=== PATIENT | male | born 1970 | race Caucasian/White ===

== ENCOUNTER 2016-10-20 16:42 | Emergency (ER) | payer OTHER ==
[~2016-10-20] VITALS: Ht 193 cm; Wt 113.4 kg
--- NOTE | ~2016-10-20 | EKG ---
[place] [address] [facility] [place] [address] ELECTROCARDIOGRAM REPORT Name: AWILDA GUTIERRES Room #: DEP KIKI Huynh#: [id number] Admission: 10/20/16 Attend Phys: Discharge: 10/20/16 Date of : 66 Report #: [id number] THIS REPORT FOR: //name// [facility] ED Test Date: 2016-10-20 Test Time: 17:24:06 Pat Name: AWILDA GUTIERRES Department: Room: Gender: [employer] Assembler: [facility] : 1970 Requested By: Vanita Reese Order Number: [id number] MD: Rishabh Coleman Measurements Intervals [place] Rate: 74 P: 44 IN: 145 QRS: 20 QRSD: 103 T: 43 QT: 407 QTc: 452 Interpretive Statements Sinus rhythm No significant abnormality Compared to ECG 05/13/2013 09:06:41 No significant changes Electronically Signed On 10-21-2016 8:22:49 CDT by Rishabh Coleman [email or web address] <ELECTRONICALLY SIGNED> By: Rishabh Coleman MD, [facility] 10/21/16 0822 1724 1724 Rishabh Coleman MD, [facility] /EPI
[~2016-10-20 16:42] MED LIST: ABILIFY PO; BACTRIM DS TAB1 EACH PO; CELEXA40 MG PO; CORTISPORIN OTI10 M2 OT; FISH OIL300 MG PO; NORCO 5-325 TA1 EACH PO
[2016-10-20 17:05] LABS: ABSOLUTE NEUTROPHILS 4.2 thou/uL (1.4-8.2); BASOPHILS 0.7 % (0.0-2.0); EOSINOPHILS 1.6 % (0.0-3.0); HEMATOCRIT 46.5 % (42.0-52.0); HEMOGLOBIN 16.1 gm/dL (14.0-18.0); LYMPHOCYTES 39.2 % (24.0-44.0); MCH 29.1 pg (26.0-34.0); MCHC 34.7 g/dL (28.0-37.0); MONOCYTES 9.2 % (1.0-8.0); PLATELET COUNT 267 thou/uL (150-400); POLYS 49.3 % (36.0-66.0); RBC 5.53 mil/uL (4.50-6.00); RDW 14.5 % (10.5-14.5); WBC 8.5 thou/uL (4.0-11.0)
[2016-10-20 17:06] LABS: MANUAL DIFF NO
[2016-10-20 17:16] LABS: ANION GAP 9 mmol/L (7-16); BUN 10 mg/dL (7-18); CALCIUM 9.1 mg/dL (8.5-10.1); CHLORIDE 104 mmol/L (98-107); CO2 29 mmol/L (21-32); GLUCOSE 112 mg/dL (74-106); POTASSIUM 3.4 mmol/L (3.5-5.1); SODIUM 142 mmol/L (136-145)
[2016-10-20 17:24] LABS: TROPONIN-I < 0.04 ng/mL (<0.04-0.07)
[2016-10-20] MEDS ORDERED: ANTIVERT25 MG PO (18:09)
[2016-10-20 18:39] VITALS: BP 148/93
== END 2016-10-20 18:38 | disposition home or self-care (01) ==
LOC: ER 16:42
PROVIDERS: Emergency Medicine
DX: R42 Dizziness and giddiness (principal); F20.9 Schizophrenia, unspecified; Z88.0 Allergy status to penicillin

== ENCOUNTER 2018-01-21 21:40 | Emergency (ER) | payer OTHER ==
[~2018-01-21] VITALS: Ht 190.5 cm; Wt 133.8 kg
[~2018-01-21 21:40] MED LIST changes: +ANTIVERT25 MG PO
[2018-01-21] MEDS ORDERED: UNICOMPLEX M TA1 TA1 PO (21:47)
[2018-01-21] MEDS ORDERED: CURCUMIN1 GM PO (21:48)
[2018-01-21 22:30] VITALS: BP 172/91
== END 2018-01-21 22:30 | disposition home or self-care (01) ==
LOC: ER 21:40
DX: L29.8 Other pruritus (principal); F20.9 Schizophrenia, unspecified; Z88.0 Allergy status to penicillin

== ENCOUNTER 2019-02-19 00:27 | Emergency (ER) | payer OTHER ==
[~2019-02-19] VITALS: Ht 190.5 cm; Wt 133.8 kg
[~2019-02-19 00:27] MED LIST changes: +CURCUMIN1 GM PO; +UNICOMPLEX M TA1 TA1 PO
[2019-02-19 02:16] VITALS: BP 138/80
== END 2019-02-19 04:02 | disposition home or self-care (01) ==
LOC: ER 00:27
DX: R20.2 Paresthesia of skin (principal); F20.9 Schizophrenia, unspecified; Z88.0 Allergy status to penicillin

== ENCOUNTER 2019-05-11 01:25 | Emergency (ER) | payer OTHER ==
[~2019-05-11] VITALS: Ht 190.5 cm; Wt 127.0 kg
[2019-05-11] MEDS ORDERED: ABILIFY10 MG PO (01:34)
[2019-05-11] MEDS ORDERED: ABILIFY 5 MG TAB5 M1 PO (01:38)
== END 2019-05-11 01:53 | disposition home or self-care (01) ==
LOC: ER 01:25
DX: F20.9 Schizophrenia, unspecified (principal); Z76.0 Encounter for issue of repeat prescription; Z88.0 Allergy status to penicillin; Z88.8 Allergy status to other drugs, medicaments and biological substances; Z79.899 Other long term (current) drug therapy